=== PATIENT | female | born 2000 | race African-American/Black ===

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

== ENCOUNTER 2020-03-02 12:03 | Emergency (ER) | payer MEDICAID ==
[2020-03-02] MEDS ORDERED: RINGERS SOLUTION,LACTATED 1,000 ML IV ONE (12:10)
[2020-03-02] MEDS ORDERED: ONDANSETRON 4 MG TAB.RAPDIS PO ONE (12:10)
--- NOTE | 2020-03-02 12:12 | ER Document Report ---
ED Medical Screen (RME) - General Stated Complaint: VOMITING BLOOD Time Seen by Provider: 03/02/20 12:06 Mode of Arrival: Wheelchair Information source: Patient Notes: HPI; 19-year-old female presents to the emergency room complaining of persistent vomiting with chest pain that started around 7 AM this morning. Patient states she drank an entire bottle of wine last night finishing it around midnight. States she normally does not drink any alcohol. Does admit to the use of marijuana last smoked 1 PM yesterday. Denies any COVID-19 exposure. Denies any ill contacts. PE: Alert and oriented x3. Lungs: Clear to auscultation without rales, rhonchi, wheezes. Heart: Tachycardic without murmurs, rubs, gallops. I have greeted and performed a rapid initial assessment of this patient. A comprehensive ED assessment and evaluation of the patient, analysis of test results and completion of the medical decision making process will be conducted by additional ED providers. I have specifically instructed the patient or family members with the patient to immediately return to any nursing staff should anything change in the patient's condition or with their chief complaint. TRAVEL OUTSIDE OF THE [place] IN LAST 30 DAYS: No - Related Data Allergies/Adverse Reactions: No Known Allergies Allergy (Verified 03/02/20 12:07) Past Medical History Pulmonary Medical History: Reports: Hx Asthma - as small child Renal/ Medical History: Denies: Hx Peritoneal Dialysis - Immunizations Immunizations up to date: Yes Hx Diphtheria, Pertussis, Tetanus Vaccination: Yes
[2020-03-02] MEDS ORDERED: ONDANSETRON HCL INJ/PF 4 MG/2 ML SDV IV ONE (12:49)
[2020-03-02] MEDS ORDERED: PANTOPRAZOLE SODIUM 40 MG VIAL IV ONE (12:50)
[2020-03-02 12:54] LABS: ABSOLUTE LYMPHOCYTES (AUTO) 1.5 10^3/uL (0.5-4.7); ABSOLUTE MONOCYTES (AUTO) 0.2 10^3/uL (0.1-1.4); ABSOLUTE NEUT (AUTO) 5.9 10^3/uL (1.7-8.2); BASOPHILS % (AUTO) 0.3 % (0-2); EOSINOPHILS % (AUTO) 0.5 % (0-6); HEMATOCRIT 43.1 % (36.0-47.0); HEMOGLOBIN 14.1 g/dL (12.0-15.5); LYMPHOCYTES % (AUTO) 19.8 % (13-45); MEAN CORPUSCULAR HEMOGLOBIN 27.8 pg (27.0-33.4); MEAN CORPUSCULAR HGB CONC 32.6 g/dL (32.0-36.0); MEAN CORPUSCULAR VOLUME 85 fl (80-97); MONOCYTES % (AUTO) 3.2 % (3-13); PLATELET COUNT 250 10^3/uL (150-450); RED BLOOD COUNT 5.06 10^6/uL (3.72-5.28); RED CELL DISTRIBUTION WIDTH 14.5 % (11.5-14.0); SEGMENTED NEUTROPHILS % (AUTO) 76.2 % (42-78); TOTAL CELLS COUNTED % (AUTO) 100 %; WHITE BLOOD COUNT 7.7 10^3/uL (4.0-10.5)
[2020-03-02 13:06] LABS: ALKALINE PHOSPHATASE 81 U/L (50-135); ANION GAP 13 (5-19); ASPARTATE AMINO TRANSFERASE 29 U/L (5-30); BILIRUBIN,DIRECT 0.1 mg/dL (0.0-0.4); BILIRUBIN,TOTAL 0.6 mg/dL (0.2-1.3); BLOOD UREA NITROGEN 6 mg/dL (7-20); CALCIUM 10.3 mg/dL (8.4-10.2); CARBON DIOXIDE 21 mmol/L (22-30); CHLORIDE 107 mmol/L (98-107); GLUCOSE 118 mg/dL (75-110); POTASSIUM 3.9 mmol/L (3.6-5.0); TOTAL PROTEIN 9.4 g/dL (6.3-8.2)
[2020-03-02 13:16] LABS: INTERNATIONAL RATION (INR) 1.04; PROTHROMBIN TIME 13.8 SEC (11.4-15.4)
--- NOTE | 2020-03-02 13:16 | RADIOLOGY REPORT (SQ) ---
EXAM DESCRIPTION: CHEST SINGLE VIEW IMAGES COMPLETED DATE/TIME: 03/02/2020 11:53 am REASON FOR STUDY: chest pain COMPARISON: None. EXAM PARAMETERS: NUMBER OF VIEWS: One view. TECHNIQUE: Single frontal radiographic view of the chest acquired. RADIATION DOSE: NA LIMITATIONS: None. FINDINGS: LUNGS AND PLEURA: No opacities, masses or pneumothorax. No pleural effusion. MEDIASTINUM AND HILAR STRUCTURES: No masses. Contour normal. HEART AND VASCULAR STRUCTURES: Heart normal in size. Normal vasculature. BONES: No acute findings. HARDWARE: None in the chest. OTHER: No other significant finding. IMPRESSION: NO ACUTE RADIOGRAPHIC FINDING IN THE CHEST. TECHNICAL DOCUMENTATION: JOB ID: [id number] 2010 [employer]- All Rights Reserved Reading location - IP/workstation name: [email or web address]
[2020-03-02] MEDS ORDERED: CHLORPROMAZINE HCL INJ 25 MG/1 ML AMPULE IV ONE (13:41)
--- NOTE | 2020-03-02 14:34 | EKG REPORT ---
SEVERITY:- NORMAL ECG - SINUS RHYTHM : Confirmed by: Rc Diaz MD 02-Mar-2020 14:33:34
[2020-03-02 15:42] LABS: ALCOHOL < 10 mg/dL (NONE DETECTED)
--- NOTE | 2020-03-02 15:44 | RADIOLOGY REPORT (SQ) ---
EXAM DESCRIPTION: ABDOMEN 2 VIEWS IMAGES COMPLETED DATE/TIME: 03/02/2020 2:01 pm REASON FOR STUDY: abd pain n/v COMPARISON: None. NUMBER OF VIEWS: Two views. TECHNIQUE: Supine and erect/decubitus radiographic images of the abdomen acquired. LIMITATIONS: None. FINDINGS: FREE AIR: None. No abnormal gas collections. LUNG BASES: Clear. BOWEL GAS PATTERN: Nonobstructive pattern. No dilated loops or air fluid levels. CALCIFICATIONS: No suspicious calcifications. SOFT TISSUES: No gross mass or suggestion of organomegaly. HARDWARE: None in the abdomen. BONES: No acute fracture. No worrisome bone lesions. OTHER: No other significant finding. IMPRESSION: NO RADIOGRAPHIC EVIDENCE FOR ACUTE ABDOMINAL DISEASE. TECHNICAL DOCUMENTATION: JOB ID: [id number] 2010 [employer]- All Rights Reserved Reading location - IP/workstation name: [email or web address]
--- NOTE | 2020-03-02 16:01 | ER Document Report ---
Entered by OBINNA WOLFE SCRIBE 03/02/20 1234 Acting as scribe for:GANESH CRUZ MD ED General - General Chief Complaint: ETOH Abuse Stated Complaint: VOMITING BLOOD Time Seen by Provider: 03/02/20 12:06 Mode of Arrival: Wheelchair Information source: Patient Notes: This 19 year old female patient presents to the ED today with complaints of nausea and vomiting that started around 0700 this morning. Patient states that she drank an entire bottle of wine by herself last night. She states that she was fine initially when she woke up, but started vomiting "blood and yellow stuff" later in the morning. She reports chest pain and abdominal pain. She notes that this is only the second time she has drank alcohol. TRAVEL OUTSIDE OF THE [place] IN LAST 30 DAYS: No - Related Data Allergies/Adverse Reactions: No Known Allergies Allergy (Verified 03/02/20 12:07) Past Medical History - General Information source: Patient - Social History Smoking Status: Current Some Day Smoker Smoking Education Provided: No Frequency of alcohol use: Rare Drug Abuse: Marijuana Family History: Reviewed & Not Pertinent Pulmonary Medical History: Reports: Hx Asthma - as small child Neurological Medical History: Reports: Hx Migraine GI Medical History: Reports: Hx Gastroesophageal Reflux Disease - Immunizations Immunizations up to date: Yes Hx Diphtheria, Pertussis, Tetanus Vaccination: Yes Review of Systems - Review of Systems Constitutional: No symptoms reported EENT: No symptoms reported Cardiovascular: See HPI, Chest pain Respiratory: No symptoms reported Gastrointestinal: See HPI, Abdominal pain, Nausea, Vomiting, Blood in vomit Genitourinary: No symptoms reported Female Genitourinary: No symptoms reported Musculoskeletal: No symptoms reported Skin: No symptoms reported Hematologic/Lymphatic: No symptoms reported Neurological/Psychological: No symptoms reported -: Yes All other systems reviewed and negative Physical Exam - Vital signs Vitals: Temp Pulse Resp BP Pulse Ox 98.3 F 82 18 156/103 H 100 03/02/20 12:13 03/02/20 12:13 03/02/20 12:13 03/02/20 12:13 03/02/20 12:13 - General General appearance: Other - Patient is actively vomiting clear liquid into an emesis bag. In distress: Moderate - HEENT Head: Normocephalic, Atraumatic Eyes: Normal Pupils: PERRL - Respiratory Respiratory status: No respiratory distress Chest status: Nontender Breath sounds: Normal Chest palpation: Normal - Cardiovascular Rhythm: Regular Heart sounds: Normal auscultation Murmur: No - Abdominal Inspection: Normal Distension: No distension Bowel sounds: Hyperactive Tenderness: Tender - Bilateral upper quadrant tenderness to palpation. No: Rebound Organomegaly: No organomegaly - Back Back: Normal, Nontender - Extremities General upper extremity: Normal inspection General lower extremity: Normal inspection. No: Edema - Neurological Neuro grossly intact: Yes Orientation: AAOx4 Thompson Coma Scale Eye Opening: Spontaneous Priyanka Coma Scale Verbal: Oriented Priyanka Coma Scale Motor: Obeys Commands Priyanka Coma Scale Total: 15 - Skin Skin Temperature: Warm Skin Moisture: Dry Skin Color: Normal Course - Re-evaluation Re-evalutation: 03/02/20 15:55 Patient resting comfortably and states she is ready to go home at this time states her abdominal pain as well as her nausea and vomiting is under control. - Vital Signs Vital signs: Temp Pulse Resp BP Pulse Ox 98.6 F 82 9 L 129/81 H 99 03/02/20 15:00 03/02/20 12:13 03/02/20 15:00 03/02/20 15:00 03/02/20 15:00 03/02/20 15:56 Vital signs stable - Laboratory Results Result Diagrams: 03/02/20 12:25 03/02/20 12:25 Laboratory Results Interpreted: 03/02/20 03/02/20 12:25 12:25 RDW 14.5 H Carbon Dioxide 21 L BUN 6 L Glucose 118 H Calcium 10.3 H Total Protein 9.4 H Labs- Entire Visit 03/02/20 03/02/20 03/02/20 12:25 12:25 12:25 WBC 7.7 RBC 5.06 Hgb 14.1 Hct 43.1 MCV 85 MCH 27.8 MCHC 32.6 RDW 14.5 H Plt Count 250 Lymph % (Auto) 19.8 Titus % (Auto) 3.2 Eos % (Auto) 0.5 Baso % (Auto) 0.3 Absolute Neuts (auto) 5.9 Absolute Lymphs (auto) 1.5 Absolute Monos (auto) 0.2 Absolute Eos (auto) 0.0 Absolute Basos (auto) 0.0 Seg Neutrophils % 76.2 PT INR Sodium 140.7 Potassium 3.9 Chloride 107 Carbon Dioxide 21 L Anion Gap 13 BUN 6 L Creatinine 0.60 Est GFR ( Amer) > 60 Est GFR (MDRD) Non-Af > 60 Glucose 118 H Calcium 10.3 H Total Bilirubin 0.6 Direct Bilirubin 0.1 Neonat Total Bilirubin Not Reportable Neonat Direct Bilirubin Not Reportable Neonat Indirect Bili Not Reportable AST 29 ALT 30 Alkaline Phosphatase 81 Troponin I Total Protein 9.4 H Albumin 5.0 Lipase Serum HCG, Qual NEGATIVE Serum Alcohol 03/02/20 03/02/20 03/02/20 12:25 12:25 15:02 WBC RBC Hgb Hct MCV MCH MCHC RDW Plt Count Lymph % (Auto) Titus % (Auto) Eos % (Auto) Baso % (Auto) Absolute Neuts (auto) Absolute Lymphs (auto) Absolute Monos (auto) Absolute Eos (auto) Absolute Basos (auto) Seg Neutrophils % PT 13.8 INR 1.04 Sodium Potassium Chloride Carbon Dioxide Anion Gap BUN Creatinine Est GFR ( Amer) Est GFR (MDRD) Non-Af Glucose Calcium Total Bilirubin Direct Bilirubin Neonat Total Bilirubin Neonat Direct Bilirubin Neonat Indirect Bili AST ALT Alkaline Phosphatase Troponin I < 0.012 Total Protein Albumin Lipase 60.2 Serum HCG, Qual Serum Alcohol < 10 Critical Laboratory Results Reviewed: No Critical Results - Radiology Results Radiology Results Interpreted: 03/02/20 15:55 Chest X-Ray 03/02/20 12:11 IMPRESSION: NO ACUTE RADIOGRAPHIC FINDING IN THE CHEST. Abdomen X-Ray 03/02/20 14:36 IMPRESSION: NO RADIOGRAPHIC EVIDENCE FOR ACUTE ABDOMINAL DISEASE. 03/02/20 15:56 Chest x-ray no acute process Abdominal x-ray no acute process Critical Radiology Results Reviewed: No Critical Results - EKG Interpretation by Me Additional EKG results interpreted by me: 03/02/20 15:57 Twelve-lead EKG shows normal sinus rhythm rate 77 normal axis, normal intervals for [place], QRS, and QT. No STEMI 03/02/20 15:58 Discharge - Discharge Clinical Impression: Nausea and vomiting, Abdominal pain Condition: Stable Disposition: HOME, SELF-CARE Instructions: Abdominal Pain ([facility]), Antinausea Medication ([facility]), Vomiting ([facility]) Prescriptions: Ondansetron [Zofran Odt 4 mg Tablet] 1 - 2 tab PO Q6H PRN #20 tab.rapdis PRN Reason: I personally performed the services described in the documentation, reviewed and edited the documentation which was dictated to the scribe in my presence, and it accurately records my words and actions.
[2020-03-02 16:11] VITALS: BP 128/82
== END 2020-03-02 16:47 | disposition home or self-care (01) ==
LOC: ER 12:03
DX: R11.2 Nausea with vomiting, unspecified (principal); R07.9 Chest pain, unspecified; R10.9 Unspecified abdominal pain; F17.200 Nicotine dependence, unspecified, uncomplicated
CPT/HCPCS: 93005; 99285; 96361; 96374; 96375; 36415; 80307; 83690; 84703; 85025; 85610; 80053; 84484; 74019; 71045; 93010; J3230; C9113; J2405; J7120

== ENCOUNTER 2020-03-04 07:11 | Emergency (ER) | payer MEDICAID | END 2020-03-04 07:31 | disposition left against medical advice (07) | LOC: ER 07:11 | DX: Z53.21 Procedure and treatment not carried out due to patient leaving prior to being seen by health care provider (principal) ==